=== PATIENT | male | born 1945 | race Asian ===

== ENCOUNTER 2024-11-06 20:05 | Inpatient (IN) | payer MEDICARE ==
[~2024-11-06] VITALS: Ht 170.2 cm; Wt 77.1 kg
[2024-11-06 22:08] LABS: CLARITY URINE CLEAR (CLEAR); COLOR URINE YELLOW (YELLOW); GLUCOSE URINE NEGATIVE (NEGATIVE); KETONES URINE NEGATIVE (NEGATIVE); LEUKOCYTE ESTERASE URINE NEGATIVE (NEGATIVE); NITRITE URINE NEGATIVE (NEGATIVE); OCCULT BLOOD URINE NEGATIVE (NEGATIVE); PROTEIN URINE NEGATIVE (NEGATIVE); SPECIFIC GRAVITY URINE 1.018 (1.005-1.030)
[2024-11-06 22:21] LABS: BASOPHILS % 0.3 % (0.0-2.0); EOSINOPHILS % 1.5 % (0.0-5.0); HEMATOCRIT. 40.2 % (42.0-52.0); HEMOGLOBIN. 13.5 g/dL (14.0-18.0); LYMPHOCYTES % 18.1 % (20.0-50.0); MEAN CORPUSCULAR HEMOGLOBIN 31.3 pg (28.0-32.0); MEAN CORPUSCULAR HGB CONC 33.7 g/dL (31.0-37.0); MEAN PLATELET VOLUME 9.5 fl (7.4-10.4); MONOCYTES % 12.6 % (2.0-8.0); NEUTROPHILS % 67.5 % (40.0-76.0); PLATELET 194 x1000/uL (130-400); RED BLOOD CELL COUNT 4.32 mill/uL (4.7-6.1); RED CELL DISTRIBUTION WIDTH 13.8 % (11.6-14.6); WHITE BLOOD COUNT 8.8 x1000/uL (4.5-11.0)
[2024-11-06 22:37] LABS: CHLORIDE 101 mEq/L (98-107); POTASSIUM 5.6 mEq/L (3.5-5.1); SODIUM 135 mEq/L (136-145)
[2024-11-06 22:38] LABS: CARBON DIOXIDE 27 mEq/L (21-32)
[2024-11-06 22:43] LABS: CREATININE 1.3 mg/dL (0.6-1.3); GLUCOSE 105 mg/dL (70-105); UREA NITROGEN BLOOD 29 mg/dL (9-23)
[2024-11-06 22:52] LABS: TROPONIN I HIGH SENSITIVITY < 4 ng/L (3.0-53)
[2024-11-07 00:10] LABS: TROPONIN I HIGH SENSITIVITY < 4 ng/L (3.0-53)
[2024-11-07 00:50] VITALS: O2SAT 98
[2024-11-07] MEDS ORDERED: IPRATROPIUM/ALBUTEROL 0.5-3(2.5)MG/3ML NEB HHN PRN (01:00)
[2024-11-07] MEDS ORDERED: CLONIDINE 0.1MG TABLET PO PRN (01:00)
[2024-11-07] MEDS ORDERED: ACETAMINOPHEN 325MG TABLET PO PRN ×2 (01:00)
[2024-11-07] MEDS ORDERED: ONDANSETRON HCL 4MG/2ML INJ IV PRN (01:00)
[2024-11-07] MEDS ORDERED: ALBUTEROL (0.083%) 2.5MG/3ML NEB HHN SCH (02:45)
[2024-11-07] MEDS: SODIUM CHLORIDE 0.9% 1,000 ML IV ONE (03:08)
[2024-11-07] MEDS: SODIUM ZIRCONIUM CYCLOSILICATE 10GM/PACKET PO SCH (03:08)
[2024-11-07] MEDS: INSULIN REGULAR (HUMULIN R) 1000UNITS/10ML VIAL IV SCH (03:43)
[2024-11-07] MEDS: CALCIUM CHLORIDE 1GM/10ML SYR IV SCH (03:45)
[2024-11-07] MEDS: DEXTROSE 50% WATER 50ML SYRINGE IV SCH (03:46)
[2024-11-07 03:59] VITALS: BP 113/68; PULSE 67; RESP 18; TEMP 36.4
[2024-11-07 07:37] LABS: CREATINE KINASE MB FRACTION 1.3 ng/mL (0.5-3.6)
[2024-11-07 07:40] LABS: CREATINE KINASE 77 IU/L (46-171)
[2024-11-07 07:48] LABS: TROPONIN I HIGH SENSITIVITY < 4 ng/L (3.0-53)
[2024-11-07 07:55] LABS: HEPATITIS B SURFACE ANTIGEN NEGATIVE (Negative)
[2024-11-07 08:17] LABS: HEPATITIS C AB NON REACTIVE (Neg) (Negative)
[2024-11-07] MEDS: PANTOPRAZOLE SODIUM 40 MG/VIAL IV SCH (09:00)
[2024-11-07 10:25] LABS: *AMPHETAMINES SCREEN URINE NEGATIVE (NEGATIVE)
[2024-11-07 10:26] LABS: *BARBITURATES SCREEN URINE NEGATIVE (NEGATIVE); *BENZODIAZEPINES SCREEN URINE NEGATIVE (NEGATIVE)
[2024-11-07 10:27] LABS: *COCAINE SCREEN URINE NEGATIVE (NEGATIVE); CANNABINOID URINE SCREEN NEGATIVE (NEGATIVE); ECSTASY MDMA SCREEN URINE NEGATIVE (NEGATIVE); METHADONE URINE SCREEN NEGATIVE (NEGATIVE); OPIATES URINE SCREEN NEGATIVE (NEGATIVE); PHENCYCLIDINE URINE SCREEN NEGATIVE (NEGATIVE)
[2024-11-07 10:30] VITALS: BP 115/62; PULSE 69; TEMP 97.2; O2SAT 97
[2024-11-07] MEDS ORDERED: DOCU-138 PO (11:39)
[2024-11-07] MEDS ORDERED: BISA-81 PO (11:40)
== END 2024-11-07 12:13 | disposition home or self-care (01) | DRG 312 ==
LOC: ER 20:05 → EDBD 23:50 → 5WST 23:50 → EDBEDREQTM 23:53 → EDBEDREQ 23:53 → ENRESERV 23:58
PROVIDERS: ADMIT Internal Medicine; ATTEND Internal Medicine
DX: I95.1 Orthostatic hypotension (principal); N17.9 Acute kidney failure, unspecified; E78.5 Hyperlipidemia, unspecified; E87.5 Hyperkalemia; Z79.899 Other long term (current) drug therapy
CPT/HCPCS: 36415; 71045; 80048; 80305; 81003; 82550; 82553; 82962; 83605; 83880; 84132; 84484; 85025; 86705; 87340; 93005; 93970; 99285; J3490